=== PATIENT | male | born 1975 | race Asian ===

== ENCOUNTER 2017-12-26 12:13 | Day surgery (SDC) | payer OTHER ==
[~2017-12-26 12:13] MED LIST: CEFAZOLIN 2 GM/50 ML (PMX) 50 ML IVPB; SOD CHLORIDE 0.9% 1,000 ML IV
[2017-12-26] MEDS ORDERED: MIDAZOLAM 1 MG/ML 2 ML INJ (14:51)
[2017-12-26] MEDS ORDERED: GLYCOPYRROLATE 0.4 MG INJ (15:53)
[2017-12-26] MEDS ORDERED: CEFAZOLIN 1 GM INJ (15:53)
[2017-12-26] MEDS ORDERED: LIDOCAINE 2% (SDV) 5 ML INJ (15:53)
[2017-12-26] MEDS ORDERED: PROPOFOL 20 ML (15:53)
[2017-12-26] MEDS ORDERED: NEOSTIGMINE 3 MG/3 ML SYRINGE (15:53)
[2017-12-26] MEDS ORDERED: ROCURONIUM 50 MG INJ (15:53)
[2017-12-26] MEDS: BUPIVACAINE 0.25% (MPF) 30 ML INJ (15:54)
[2017-12-26] MEDS: POLYMYXIN/BACITRACIN 1L IRRIG (15:54)
[2017-12-26] MEDS ORDERED: ONDANSETRON 4 MG INJ (15:55)
[2017-12-26] MEDS: HYDROCODONE/APAP (5/325) TAB PO (16:00)
[2017-12-26] MEDS ORDERED: DIPHENHYDRAMINE 50 MG INJ IV (16:30)
[2017-12-26] MEDS ORDERED: FENTAnyl 50 MCG/ML VIAL IV (16:30)
[2017-12-26] MEDS ORDERED: METOCLOPRAMIDE 10 MG INJ IV (16:30)
[2017-12-26] MEDS ORDERED: HYDROmorphONE (0.2 MG/ML) 10ML SYG IV ×2 (16:30)
[2017-12-26] MEDS ORDERED: ONDANSETRON 4 MG INJ IV (16:30)
[2017-12-26] MEDS ORDERED: MEPERIDINE 25 MG INJ IV (16:30)
== END 2017-12-26 17:36 | disposition home or self-care (01) ==
LOC: SDS 12:13
DX: K40.30 Unilateral inguinal hernia, with obstruction, without gangrene, not specified as recurrent (principal); Z87.891 Personal history of nicotine dependence
CPT/HCPCS: 49507